=== PATIENT | male | born 1990 | race African-American/Black ===

== ENCOUNTER 2021-01-30 18:26 | Emergency (ER) | payer OTHER ==
[2021-01-30 18:34] VITALS: BP 127/88; PULSE 78; TEMP 98.3; BMI 24.4
[2021-01-30 19:28] LABS: BASO % 0.4 % (0-2.0); EOS % 3.7 % (0-4.5); HEMATOCRIT 43.2 % (35.4-49); HEMOGLOBIN 14.6 GM/dL (11.7-16.9); LYMPH % 32.5 % (8-40); MCH 29.8 pg (25.7-33.7); MCHC 33.7 g/dl (32.0-35.9); MEAN CELL VOLUME 88.5 fl (80-96); MEAN PLT VOLUME 8.7 fl (7.5-11.1); MONO % 8.6 % (3.8-10.2); NEUT % 54.8 % (42.8-82.8); PLATELET COUNT 171 K/MM3 (134-434); RBC 4.89 M/mm3 (4.00-5.60); RDW 14.1 % (11.9-15.9); WHITE BLOOD COUNT 5.9 K/mm3 (4.0-10.0)
[2021-01-30 19:45] LABS: CHLORIDE 105 mmol/L (98-107); SODIUM 136 mmol/L (136-145)
[2021-01-30 19:49] LABS: ANION GAP 4 MMOL/L (8-16); BLOOD UREA NITROGEN 11.7 mg/dL (7-18); CO2 27 mmol/L (21-32); GLUCOSE,RANDOM 86 mg/dL (74-106)
[2021-01-30 19:52] LABS: CREATININE 0.9 mg/dL (0.55-1.3); SGOT/AST 15 U/L (15-37); SGPT/ALT 25 U/L (13-61)
[2021-01-30 19:54] LABS: BILIRUBIN,TOTAL 0.6 mg/dL (0.2-1); TOT PROT 7.4 g/dl (6.4-8.2)
[2021-01-30 19:55] LABS: ALK PHOS 60 U/L (45-117)
== END 2021-01-30 20:30 | disposition home or self-care (01) ==
LOC: JERFT 18:26
DX: R07.9 Chest pain, unspecified (principal)
CPT/HCPCS: 36415; 71046-TC-FY; 80053; 82550; 82553; 84484; 85025; 93005; 93010; 99285-25

== ENCOUNTER 2021-12-15 17:30 | Emergency (ER) | payer OTHER ==
[2021-12-15 17:38] VITALS: BP 130/86; PULSE 94; TEMP 98; BMI 23.7
== END 2021-12-15 19:50 | disposition home or self-care (01) ==
LOC: JERFT 17:30
DX: S63.631A Sprain of interphalangeal joint of left index finger, initial encounter (principal); X50.0XXA Overexertion from strenuous movement or load, initial encounter
CPT/HCPCS: 73130-TC-LT-FY; 99283-25